=== PATIENT | female | born 1990 ===

== ENCOUNTER 2019-05-31 01:14 | Emergency (ER) | payer SELFPAY ==
[~2019-05-31] VITALS: Ht 160 cm; Wt 68.0 kg
[2019-05-31] MEDS ORDERED: HYDROCODONE/ACETAMINOPHEN 5/325MG TABLET PO ONE (03:15)
[2019-05-31 05:22] LABS: BASOPHILS % 0.5 % (0.0-2.0); EOSINOPHILS % 0.1 % (0.0-5.0); HEMATOCRIT. 38.4 % (36.0-48.0); HEMOGLOBIN. 13.1 g/dL (12.0-16.0); MEAN CORPUSCULAR HEMOGLOBIN 30.3 pg (28.0-32.0); MEAN CORPUSCULAR VOLUME 88.5 fL (81.0-99.0); MEAN PLATELET VOLUME 7.1 fl (7.4-10.4); MONOCYTES % 5.5 % (2.0-8.0); NEUTROPHILS % 83.9 % (40.0-76.0); PLATELET 284 x1000/uL (130-400); RED BLOOD CELL COUNT 4.34 mill/uL (4.2-5.4); RED CELL DISTRIBUTION WIDTH 12.7 % (11.6-14.6)
[2019-05-31 05:29] LABS: CHLORIDE 108 mEq/L (98-107)
[2019-05-31 05:36] LABS: HCG SCREEN NEGATIVE
[2019-05-31] MEDS ORDERED: IOHEXOL-300 100 ML BOTTLE ONE (06:58)
[2019-05-31] MEDS ORDERED: MORPHINE SULFATE 2 MG/ML CPJ (NOT FOR IM USE) IV ONE (10:15)
[2019-05-31 12:01] VITALS: BP 118/70
== END 2019-05-31 12:04 | disposition home or self-care (01) ==
LOC: ER 01:14
DX: S82.201A Unspecified fracture of shaft of right tibia, initial encounter for closed fracture (principal); M25.571 Pain in right ankle and joints of right foot; R10.9 Unspecified abdominal pain; R06.02 Shortness of breath; R07.9 Chest pain, unspecified
CPT/HCPCS: 29515; 36415; 71260; 73610; 73700; 74177; 80048; 84703; 85025; 93005; 96374; 99284; J2270; Q9967